=== PATIENT | male | born 2000 | race African-American/Black ===

== ENCOUNTER 2025-08-19 15:28 | Outpatient (AMB) | payer OTHER, SELFPAY ==
--- NOTE | 2025-08-19 15:33 | A.OFFPC_ITS ---
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 Intake Note: [facility] Care Riprap Placer Required: No Accompanied by: Self / Same As Patient Allergies No Known Allergies (No Known Allergies*) Allergy (Unverified 08/19/25 15:36) Medication List - Last Reconciled 08/19/25 by Live Goodwin MD No Known Home Meds Tobacco use date assessed: 08/19/25 Dental Screening Dental Screen Date: 08/19/25 Did you have a dental visit in the last 12 months?: Yes Did you have a dental problem in the last 6 months where you did not have access to dental care?: No Was dental information given to patient?: Patient has dentist HPI HPI Comments History of Present Illness Details History of Present Illness The patient is a 25 year old individual presenting to establish care and obtain medical documentation for school. 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 The patient previously visited an urgent care and received a PPD skin test for tuberculosis which was negative, but the school did not accept the provided paperwork. The patient also began receiving vaccinations at [facility] but did not complete the series, pending this PCP appointment. History of Attention-Deficit/Hyperactivity Disorder: The patient was diagnosed with ADD or ODD as a child while experiencing emotional difficulties and was placed on unspecified medications, which were later discontinued. The patient was hospitalized in a psychiatric facility when younger. Encounter for general adult medical examination without abnormal findings: The patient has not seen a primary care physician since high school and has a limited knowledge of the patient's own medical history due to being in foster care during adolescence. The last comprehensive blood work was likely done during high school. Surgical History: - History of being placed under anesthes ia for dental procedures for cavities as a child. Medications: - The patient is not currently taking an y medications. - The patient reports a history of takin g unspecified medication for ADD/ODD as a child but has since stopped. Social History: - Substance Use: Smokes marijuana since high school with variable frequency. - Alcohol Use: Drinks occasionally. - Past History: The patient was in [facility] care as a youth. 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 - Living Situation: Currently lives at a n aunt's house and is trying to secure a new residence with a sister that would also accommodate their grandmother. - Sexual History: Sexually active with o ne partner, uses protection, and reports a negative STI screening within the last six months. Family History: - The patient is aware of the patient's parents but reports no known family medical history. Diagnostic Results: - Tuberculosis Skin Test: Reports a prio r test at an urgent care facility which was interpreted as negative, but the paperwork was not accepted by the patient's school. Past Medical History - The patient has not had a primary care physician since high school. - History of being in foster care. - History of psychiatric hospitalization as a youth. - Past diagnosis of ADD or ODD as a chil d. - History of multiple dental cavities re quiring sedation for procedures as a child. Health Maintenance - Establishing care with a new primary c are provider. - Immunizations: Titers for measles, mum ps, rubella, and varicella were ordered to assess immunity status for school requirements. - Tuberculosis Screening: A blood test f or tuberculosis was ordered. - Comprehensive Lab Screening: Baseline labs ordered include a CBC, CMP, lipid panel, HgbA1c, hepatitis B/C, HIV, RPR, TSH, magnesium, vitamin B12, folate, vitamin D, and a urinalysis. - STI Screening: The patient reports jeromy ng tested within the last six months and declined repeat testing at this visit. 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 1. Little interest or pleasure in doing things: not at all 2. Feeling down, depressed, or hopeless: several days 3. Trouble falling or staying asleep, or sleeping too much: not at all 4. Feeling tired or having little energy: not at all 5. Poor appetite or overeating: several days 6. Feeling bad about yourself - or that you are a failure or have let yourself or your family down: not at all 7. Trouble concentrating on things, such as reading the newspaper or watching television: not at all 8. Moving or speaking so slowly that other people could have noticed. Or the opposite - being so fidgety or restless that you have been moving around a lot more than usual: not at all 9. Thoughts that you would be better off or of hurting yourself in some way: not at all Total score: 2 Depression Screening Interpretation: Negative Depression Screening Done: Yes 31914 - PHQ-9 Billing: Yes Source: Developed by Drs. Korey Garcia, Shanita Gamble, Eric Jean Baptiste and colleagues, with an educational justin from [employer]. Thrive Questionnaire Date Thrive assessed: 08/19/25 I am a: Patient What is your living situation today?: I have a steady place to live Within the past 12 months, did the food you bought not last and you didn't have the money to get more?: Sometimes True Within the past 12 months, did you worry whether your food would run out before you got money to buy more?: Sometimes True Do you have trouble paying for medicines?: No Do you have trouble getting transportation to medical appointments?: No Do you have trouble paying your heating and electricity bill?: No Do you have trouble taking care of your child, family member or friend?: No Are you currently unemployed and looking for a job?: No Are you interested in more education?: Yes Please select the resources that you would like help with: None Currently or been in a relationship where the following occur: I choose not to answer THRIVE Score: 2 AUDIT C Alcohol Use Questionnaire (AUDIT-C) 1. How often do you have a drink containing alcohol?: 2-4 times a month 2. How many drinks containing alcohol do you have on a typical day when you are drinking?: 3 or 4 3. How often do you have six or more drinks on one occasion?: Less than monthly Total Score: 4 EUGENIO-7 AMB Questionnaire EUGENIO-7 Date EUGENIO - 7 assessed: 08/19/25 Feeling nervous, anxious, or on edge: 0 = Not at all Not being able to stop or control worryin = Not at all Worrying too much about different things: 1 = Several days Trouble relaxin = Not at all Being so restless that it is hard to sit still: 0 = Not at all Becoming easily annoyed or irritable: 1 = Several days Feeling afraid as if something awful might happen: 0 = Not at all Total EUGENIO-7 score (0-4 normal; 5-9 mild; 10-14 moderate; 15-21 severe): 2 Source: Developed by Drs. Korey Garcia, Shanita Gamble, Eric Jean Baptiste and colleagues, with an educational justin from [employer]. EUGENIO-7 Assessment Billing EUGENIO-7 Assessment Tool: EUGENIO-7 Assessment 06967 Review of Systems Narrative Review of Systems - Constitutional: Reports variable sleep. - HEENT: Reports transient pain in the ear during otoscopic examination. - Gastrointestinal: Reports normal bowel and bladder function. - All other systems reviewed and are negative. 10-point ROS reviewed and negative except as noted in HPI Physical exam (Primary Care) Vital Signs: Last Vital Signs Temp 98.1 F 08/19/25 15:39 Pulse 75 08/19/25 15:39 Resp 18 08/19/25 15:39 BP 126/79 08/19/25 15:39 Pulse Ox 98 08/19/25 15:39 Oxygen Delivery Method Room Air 08/19/25 15:39 BMI result Body Mass Index 25.7 Tobacco/Smoking Status: Tobacco use Status Tobacco use date assessed 08/19/25 08/19/25 15:41 Patient Tobacco Use Status Never used Tobacco 08/19/25 16:48 e-Cigarette/Vaping Use Never Used 08/19/25 15:41 PHQ-9: PHQ-9 Score PHQ-9: Total score 2 08/19/25 15:46 Depression Screening Interpretation: Negative Thrive Assessment: Date of Thrive Assessment Date Thrive assessed 08/19/25 08/19/25 15:35 Currently or been in a relationship where the following occur: I choose not to answer Narrative Physical Exam General: Well-appearing, in no acute distress. Vital signs: Within normal limits. HEENT: Normocephalic, atraumatic. PERRLA, EOMI. Conjunctiva clear, sclera anicteric. Oropharynx clear, mucous membranes moist. TMs intact bilaterally. Ears look good. Neck: Supple, no lymphadenopathy, no thyromegaly, no JVD or carotid bruits. Cardiovascular: RRR, normal S1/S2, no murmurs, rubs, or gallops. Peripheral pulses 2+ and symmetric. No edema. Respiratory: Lungs clear to auscultation bilaterally, no wheezes, rales, or rhonchi. Normal effort. Abdomen: Soft, non-tender, non-distended. Normoactive bowel sounds. No hepatosplenomegaly, no masses. MSK: Full range of motion, no joint swelling or deformity. Normal gait. Skin: Warm, dry, intact. No rashes, lesions, or pallor. Neuro: Alert and oriented x3. Cranial nerves II-XII intact. Strength 5/5 throughout. Sensation intact. Reflexes 2+ symmetric. Normal coordination and gait. Psych: Appropriate mood and affect. Normal judgment and insight. History of ADD/ODD diagnosis in childhood, no current psychiatric medication use. Coding Level of Care Code New Pt Level 4 (31877) Diagnoses History of ADHD Z86.59 Encounter for administrative examinations Z02.9 Additional Codes EUGENIO-7 Assessment Billing - EUGENIO-7 Assessment Tool: EUGENIO-7 Assessment 91138 ([id number]) PHQ-9 - 05118 - PHQ-9 Billing: Yes ([id number]) Assessment & Plan Assessment & Plan (1) History of ADHD: Code(s): Z86.59 - Personal history of other mental and behavioral disorders Category: Medical (2) Encounter for administrative examinations: Code(s): Z02.9 - Encounter for administrative examinations, unspecified Plan Consent The plan for a comprehensive blood draw was discussed with the patient, including tests for a complete blood count, comprehensive metabolic panel, A1c, lipids, hepatitis B and C, HIV, magnesium, syphilis, thyroid function, urinalysis, vitamin B12, folate, vitamin D, and titers for measles, mumps, rubella, and varicella, as well as a blood test for tuberculosis. The patient was informed that the blood would be drawn today and agreed to the plan. Patient was informed and verbally consented to the use of an ambient scribe for clinic note documentation during this visit. Plan 1. Encounter For Administrative Purposes And Health Maintenance - A comprehensive lab panel will be drawn today to establish a baseline, including a CBC, CMP, A1c, lipid panel, hepatitis B, hepatitis C, HIV, magnesium, syphilis, TSH, urinalysis, vitamin B12, folate, and vitamin D. - Titers for measles, mumps, rubella, and varicella will be ordered to satisfy school requirements. - A blood test for tuberculosis will be ordered. - The patient will follow up in two weeks to review all results and determine if any further action, such as vaccinations, is needed. Discussion Notes I have discussed with the patient the plan for this visit, which is to establish care and fulfill the patient's medical requirements for school. I explained that we would perform a comprehensive blood workup to get a baseline of the patient's health, given the long interval since the last physician visit. This will include titers for measles, mumps, rubella, and varicella, and a blood test for tuberculosis. I informed the patient that the blood draw could be done today at the adjacent lab. We will schedule a follow-up visit in two weeks to review all lab results and discuss any further steps. The patient verbalized understanding and agreed with the plan. Patient Instructions - Please go to the lab next door today to have your blood drawn. - Schedule a follow-up appointment in two weeks to discuss your results. - Do not get any more vaccines until we review the results of your immunity tests (titers). Medical Decision Making The patient is a 25-year-old individual presenting to establish primary care and fulfill medical requirements for a medical officer program. The patient has not had consistent medical care since high school and has a fragmented medical record due to a history of being in foster care. The approach for this visit was to perform a complete physical exam, gather a comprehensive history, and order baseline laboratory studies to assess overall health status. To meet school requirements, blood titers for MMR and varicella were ordered as the most efficient method to confirm immunity, potentially avoiding unnecessary vaccinations. A blood-based tuberculosis test was also ordered, as the documentation from a prior negative skin test was deemed insufficient by the patient's school. The comprehensive lab panel will provide a necessary baseline given the long lapse in care. A follow-up in two weeks is planned to review all findings and create a long-term health maintenance plan. Total Time Statement 30 min Total time spent caring for the patient today includes pre-visit chart review, documentation, review of laboratory and diagnostic imaging results, medication reconciliation, medically necessary evaluation, counseling on diagnoses, care coordination, ordering appropriate tests and medications, review of tests performed by other providers, reporting test results to the patient, and communication with other healthcare providers. Orders: Orders HIV Ab/Ag Today Z13.9 - Encounter for screening, unspecified UA CC w/rflx Micro + Cult Today Z13.9 - Encounter for screening, unspecified Lipid Panel Today Z13.9 - Encounter for screening, unspecified Vitamin B12 and Folate Today Z13.9 - Encounter for screening, unspecified Hemoglobin A1c Today Z13.9 - Encounter for screening, unspecified Magnesium Today Z13.9 - Encounter for screening, unspecified Vitamin D 1,25 dihydroxy Today Z13.9 - Encounter for screening, unspecified MMR IgG Measles Mumps Rubella Today Z13.9 - Encounter for screening, unspecified Quantiferon TB Gold Plus 1 Today Z13.9 - Encounter for screening, unspecified Complete Blood Count Auto Diff Today Z13.9 - Encounter for screening, unspecified Hepatitis B Surface Antigen Today Z13.9 - Encounter for screening, unspecified Syphilis Screen Today Z13.9 - Encounter for screening, unspecified Comprehensive Met. Panel Today Z13.9 - Encounter for screening, unspecified Hepatitis C Antibody Today Z13.9 - Encounter for screening, unspecified TSH reflex Free T4 Today Z13.9 - Encounter for screening, unspecified Hepatitis B Surface Antibody Today Z13.9 - Encounter for screening, unspecified Varicella IgG Antibody Today Z13.9 - Encounter for screening, unspecified
[2025-08-19 15:39] VITALS: BP 126/79; PULSE 75; RESP 18; TEMP 36.7; O2SAT 98; BMI 25.7
--- OUTSIDE RECORDS SUMMARY | 2025-08-19 18:27 | XMS_ITS | Clinical Summary ---
Author Organization [facility] Address [address] [place] [address] Phone Care Team Providers Care Maintenance Trainer Name Role Phone Physician, No Pcp Primary Care Provider Unavaila ble Allergies No known active allergies Medications No known medications Social History Tobacco Use Types Packs/Day Years Used Date Smoking Tobacco: Never Smokeless Tobacco: Never Tobacco Cessation:Counseling Given: Not Answered Alcohol Use Standard Drinks/Week Comments Not Currently 0 (1 standard drink = 0.6 oz pur e alcohol) Sex and Gender Information Value Date Recorded Sex Assigned at Not on file Legal Sex Male 1:49 PM EST Gender Identity Not on file Sexual Orientation Not on file Obstetrics History Last Filed Vital Signs Vital Sign Reading Time Taken Comments Blood Pressure 134/78 07/24/2024 9:57 AM EST Pulse 76 07/24/2024 9:57 AM EST Temperature 36.6 C (97.9 F) 07/24/2024 5:56 AM EST Respiratory Rate 16 07/24/2024 9:57 AM EST Oxygen Saturation 98% 07/24/2024 9:57 AM EST Inhaled Oxygen Concentration - - Weight - - Height - - Body Mass Index - - Plan of Treatment Health Maintenance Due Date Last Done Comments DTaP,Tdap,and Td Vaccines (6 - Tdap) 2009 06/21/2002, 12/31/1999, 1998, Additional history exists HIV Screening 08/17/2022 Hepatitis C Screening 08/17/2022 Social Influencers of Health Screening 08/17/2022 Depression Screening 09/19/2024 COVID-19 Vaccine ( season) 2025 Influenza Vaccine (#1) 2025 2, 06/21/2002, 09/14/2001 HPV Vaccines (1 - 3-dose SCDM series) 2025 RSV Immunization Adult Patients (1 - 1-dose 75+ series) 2073 Hepatitis B Vaccines Completed 03/30/1999, 1998, 1998 HIB Vaccines Completed 06/21/2002, 11/17, 1998, Additional history exists IPV Vaccines Completed 06/21/2002, 12/18, 1998, Additional history exists MMR Vaccines Completed 06/21/2002, 06/11/1999 Varicella Vaccines Completed 10/05/2007, 12/31/1999 Hepatitis A Vaccines Aged Out No long er eligible based on patient's age to complete this topic Meningococcal ACWY Vaccine Aged Out N o longer eligible based on patient's age to complete this topic Meningococcal B Vaccine Aged Out No l onger eligible based on patient's age to complete this topic Pneumococcal Vaccine: Pediatrics (0 to 5 Years) and At-Risk Patients (6 to 49 Years) Aged Out No longer eligible based on patient's age to complete this topic RSV Immunization Patients Under 20 months Aged Out No longer eligible based on patient's age to complete this topic Insurance MEDICAID - [place] Care Teams Maintenance Trainer Relationship Specialty Start Date End Date Physician, No Pcp PCP - General 07/24/24
== END 2025-08-19 15:58 | disposition home or self-care (01) ==
LOC: HO.HMCFMS 15:29
PROVIDERS: PCP Internal Medicine; Visit Provider Student in an Organized Health Care Education/Training Program
DX: Z86.59 Personal history of other mental and behavioral disorders (principal); Z02.9 Encounter for administrative examinations, unspecified

== ENCOUNTER 2025-08-19 15:28 | Outpatient (REF) | payer OTHER, SELFPAY ==
[2025-08-19 18:24] LABS: MANUAL DIFF FLAG NO
[2025-08-19 19:05] LABS: Hematocrit 40.3 % (42.0-52.0); Hemoglobin 14.4 g/dl (14.0-18.0); Imm Gran Abs Auto 0.02 X10*3/uL (0.00-0.03); Imm Gran Pct Auto 0.3 % (0.0-0.4); Lymphocytes Absolute Auto 1.9 X10*3/uL (1.2-4.9); Mean Corpuscular HGB Conc 35.7 g/dl (31.0-36.0); Mean Corpuscular Hemoglobin 31.1 pg (27.0-33.0); Mean Corpuscular Volume 87.0 fL (80.0-98.0); NRBC Abs Auto 0.000 X10*3/uL (0.0-0.012); NRBC Pct Auto 0.0 /100WBC (0.0-0.2); Platelet Count 151 X10*3/uL (160-400); Red Blood Count 4.63 X10*6/uL (4.60-5.80); White Blood Count 7.8 X10*3/uL (4.8-10.8)
[2025-08-19 19:51] LABS: Appearance Urine Clear; Glucose Urine UA Negative (Negative); PH 6.0 (5.0-9.0); Specific Gravity - Urine 1.015 (1.005-1.025)
[2025-08-19 20:00] LABS: Alanine Aminotransferase 29 U/L (0-40); Albumin Level 4.6 g/dL (3.5-5.0); Alkaline Phosphatase 97 U/L (39-117); Anion Gap 11 (12-20); Aspartate Amino Transferase 50 U/L (5-37); Blood Urea Nitrogen 11 mg/dL (9-16); Calcium 9.2 mg/dL (8.4-10.2); Carbon Dioxide 27 mmol/L (22-29); Chloride 106 mmol/L (96-108); Cholesterol 172 mg/dL (<200); Estimated Glomerular Filt Rate > 60; HDL Cholesterol 63 mg/dL (>40); Magnesium 1.9 mg/dL (1.6-2.6); Potassium 3.6 mmol/L (3.3-5.1); Sodium 140 mmol/L (135-145); Total Protein 7.2 g/dL (6.5-8.0); Triglycerides 58 mg/dL (<150)
[2025-08-19 20:19] LABS: Folate 12.4 ng/mL (> or = 4.0); Vitamin B12 547 pg/mL (200-900)
[2025-08-20 07:52] LABS: Syphilis Screen Nonreactive (Nonreactive)
[2025-08-20 09:13] LABS: HBS Num1 > 1000.00 mIU/mL (0-7.99); HBsAGNum1 0.44 S/CO (0.00-0.99); HIV Num 1 0.08 S/CO (0.00-0.99); Hepatitis B Surface Antigen Negative (Negative); ~HepC Num1 0.07 S/CO (0.00-0.79); ~Hepatitis B Surface Antibody REACTIVE (Nonreactive); ~Hepatitis C Antibody Nonreactive (Nonreactive)
[2025-08-21 16:13] LABS: Rubeola IgG (Measles) 190.00 AU/mL
[2025-08-22 06:58] LABS: Quantiferon TB Gold Plus 1 NEGATIVE (NEGATIVE); TB Test (QFT) Mitogen -Nil 8.28 IU/mL; TB Test (QFT) Nil 0.02 IU/mL; TB Test (QFT) Plus TB1 -Nil 0.00 IU/mL; TB Test (QFT) Plus TB2 -Nil 0.00 IU/mL
[2025-08-25 14:13] LABS: VITAMIN D (1,25 OH) D3 68 pg/mL; Vit D (1,25-Dihydroxy) Total 68 pg/mL (18-72); Vitamin D (1,25 OH) D2 <8 pg/mL
== END 2025-08-19 15:29 | disposition home or self-care (01) ==
LOC: HO.HKASLDS 15:28
PROVIDERS: PCP Student in an Organized Health Care Education/Training Program; Visit Provider Student in an Organized Health Care Education/Training Program
DX: Z02.0 Encounter for examination for admission to educational institution (principal)
CPT/HCPCS: 36415; 80053; 80061; 81003; 82607; 82652; 82746; 83036; 83735; 84443; 85025; 86480; 86706; 86735; 86762; 86765; 86780; 86787; 86803; 87340; 87389

== ENCOUNTER 2025-09-03 15:35 | Outpatient (AMB) | payer OTHER, SELFPAY ==
--- NOTE | 2025-09-03 15:36 | MHC.PC.OV ---
Vital Signs 09/03/25 15:41 Height 5 ft 8 in Weight 165 lb 8 oz BMI 25.2 BP 146/92 H Blood Pressure Location Rt brachial Position Sitting Respiration 18 Pulse 76 Pulse Source Pulse Oximeter Temp 97.7 F Temp Source Oral Pulse Oximetry (%) 99 Oxygen Delivery Method Room Air Intake Visit Reasons: 2 wk - lab review Intake Note: patient present for lab review. Business Center Representative Required: No Accompanied by: Self / Same As Patient Allergies No Known Allergies (No Known Allergies*) Allergy (Unverified 09/03/25 15:40) Medication List - Last Reconciled 09/03/25 by Live Goodwin MD No Known Home Meds Tobacco use date assessed: 08/19/25 Dental Screening Dental Screen Date: 08/19/25 HPI HPI Comments History of Present Illness Details History of Present Illness The patient is a 25 year old male presenting for a review of his lab results. Elevated Aspartate Aminotransferase (AST): The patient's lab results show an elevated aspartate aminotransferase (AST) level of 50, with the upper limit of normal being 37. Alcohol use: The patient reports a history of drinking alcohol every day last year. He states he no longer drinks daily but now tries to limit his alcohol consumption to the weekends, with an occasional drink during the week. 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 - Substance Use: The patient reports alcohol consumption. - He previously drank daily but now attempts to limit it to weekends. Diagnostic Results: - CBC: White blood cells and red blood cells are normal. - CMP: Sodium, potassium, and kidney function are normal. - Liver Function Tests: AST is elevated at 50 (normal <37), while other liver markers are normal. - Lipid Panel: Cholesterol levels were noted to be good. - Other Labs: Vitamin B12, folate, vitamin D, and thyroid function are normal. - Urinalysis: Normal. - Infectious Disease Screening: Syphilis, hepatitis B, and hepatitis C are negative. - Titers: Obtained for mumps, rubella, and measles. - TB Test: Completed. Past Medical History Health Maintenance - Lab results reviewed, which included CBC, CMP, liver function tests, lipids, vitamin levels, thyroid, urinalysis, and infectious disease screening. - Immunization titers for mumps, rubella, and measles were checked. - TB testing was performed. - Counseled on reducing alcohol intake due to elevated AST levels. 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 Current occupational exposures/hazards: No Cognitive needs: No Hearing needs: No Vision needs: No Questionnaire Thrive Questionnaire Date Thrive assessed: 08/19/25 I am a: Patient What is your living situation today?: I have a steady place to live Within the past 12 months, did the food you bought not last and you didn't have the money to get more?: Sometimes True Within the past 12 months, did you worry whether your food would run out before you got money to buy more?: Sometimes True Do you have trouble paying for medicines?: No Do you have trouble getting transportation to medical appointments?: No Do you have trouble paying your heating and electricity bill?: No Do you have trouble taking care of your child, family member or friend?: No Are you currently unemployed and looking for a job?: No Are you interested in more education?: Yes Please select the resources that you would like help with: None Currently or been in a relationship where the following occur: I choose not to answer THRIVE Score: 2 EUGENIO-7 AMB Questionnaire EUGENIO-7 Date EUGENIO - 7 assessed: 08/19/25 Source: Developed by Drs. Korey Garcia, Shanita Gamble, Eric Jean Baptiste and colleagues, with an educational justin from [employer]. Review of Systems Narrative Review of Systems 10-point ROS reviewed and negative except as noted in HPI Physical exam (Primary Care) Vital Signs: Last Vital Signs Temp 97.7 F 09/03/25 15:41 Pulse 76 09/03/25 15:41 Resp 18 09/03/25 15:41 BP 146/92 H 09/03/25 15:41 Pulse Ox 99 09/03/25 15:41 Oxygen Delivery Method Room Air 09/03/25 15:41 BMI result Body Mass Index 25.2 Tobacco/Smoking Status: Tobacco use Status Tobacco use date assessed 08/19/25 09/03/25 15:42 Patient Tobacco Use Status Never used Tobacco 09/03/25 15:42 e-Cigarette/Vaping Use Never Used 09/03/25 15:42 Thrive Assessment: Date of Thrive Assessment Date Thrive assessed 08/19/25 09/03/25 15:42 Currently or been in a relationship where the following occur: I choose not to answer Narrative Physical Exam General: Well-appearing, in no acute distress. Vital signs: Within normal limits. HEENT: Normocephalic, atraumatic. PERRLA, EOMI. Conjunctiva clear, sclera anicteric. Oropharynx clear, mucous membranes moist. TMs intact bilaterally. Neck: Supple, no lymphadenopathy, no thyromegaly, no JVD or carotid bruits. Cardiovascular: RRR, normal S1/S2, no murmurs, rubs, or gallops. Peripheral pulses 2+ and symmetric. No edema. Respiratory: Lungs clear to auscultation bilaterally, no wheezes, rales, or rhonchi. Normal effort. Abdomen: Soft, non-tender, non-distended. Normoactive bowel sounds. No hepatosplenomegaly, no masses. MSK: Full range of motion, no joint swelling or deformity. Normal gait. Skin: Warm, dry, intact. No rashes, lesions, or pallor. Neuro: Alert and oriented x3. Cranial nerves II-XII intact. Strength 5/5 throughout. Sensation intact. Reflexes 2+ symmetric. Normal coordination and gait. Psych: Appropriate mood and affect. Normal judgment and insight. Coding Level of Care Code Est Pt Level 3 (74244) Add On Problem Visit Only Diagnoses Elevated AST (SGOT) R74.01 Alcohol use F10.90 Assessment & Plan Assessment & Plan (1) Elevated AST (SGOT): Code(s): R74.01 - Elevation of levels of liver transaminase levels Category: Medical (2) Alcohol use: Code(s): F10.90 - Alcohol use, unspecified, uncomplicated Category: Medical Plan Consent Patient was informed and verbally consented to the use of an ambient scribe for clinic note documentation during this visit. Plan 1. Elevated Aspartate Aminotransferase (Ast) - The elevated AST level of 50 is likely due to alcohol consumption, as other liver markers are normal. - It was recommended that the patient reduce his alcohol intake. 2. Alcohol Use - Recommended reducing alcohol consumption. 3. Preventative Care - Lab results were reviewed with the patient. - Printouts of the lab results will be provided to the patient for submission to his emergency medicine medical director program. Discussion Notes I reviewed the patient's lab results with him. I noted that his CBC, electrolytes, kidney function, other liver markers, cholesterol, vitamin levels, thyroid function, and urinalysis were all normal. Screenings for syphilis, hepatitis B, and hepatitis C were negative. I explained that his AST is slightly elevated at 50, which is indicative of alcohol consumption. I recommended he reduce his alcohol intake. I agreed to provide him with printouts of his lab results, which he needs for his application to a emergency medicine medical director program. Patient Instructions - Your lab results were mostly normal, including your blood counts, kidney and liver function (except for one test), cholesterol, and vitamin levels. - One of your liver tests (AST) was slightly high, which is a sign of drinking alcohol. - It is recommended that you cut down on your alcohol consumption to allow your liver to rest. - We will provide you with a copy of your lab results to submit for your school application. Medical Decision Making The patient is a 25-year-old male here for a follow-up visit to review his lab results. His labs are largely unremarkable except for a mildly elevated AST of 50. Given that his other liver function markers are within normal limits and his self-reported history of alcohol use, the elevated AST is most consistent with alcohol-related hepatic effects. The patient was counseled on reducing his alcohol intake to prevent further liver strain. No further immediate workup is needed, but monitoring and lifestyle modification are rock. Total Time Statement 20 min Total time spent caring for the patient today includes pre-visit chart review, documentation, review of laboratory and diagnostic imaging results, medication reconciliation, medically necessary evaluation, counseling on diagnoses, care coordination, ordering appropriate tests and medications, review of tests performed by other providers, reporting test results to the patient, and communication with other healthcare providers.
[2025-09-03 15:41] VITALS: BP 146/92; PULSE 76; RESP 18; TEMP 36.5; O2SAT 99; BMI 25.2
--- OUTSIDE RECORDS SUMMARY | 2025-09-03 19:46 | XMS_ITS | Clinical Summary ---
Author Organization [facility] Address [address] [place] [address] Phone Care Team Providers Care Sand Temperer Name Role Phone Physician, No Pcp Primary [...] on file Sexual Orientation Not on file Last Filed Vital Signs Vital Sign Reading [...] topic Insurance MEDICAID - [place] Care Teams Sand Temperer Relationship Specialty Start Date End Date Physician, No Pcp PCP - General 07/24/24
== END 2025-09-03 15:51 | disposition home or self-care (01) ==
LOC: HO.HMCFMS 15:36
PROVIDERS: PCP Internal Medicine; Visit Provider Student in an Organized Health Care Education/Training Program
DX: R74.01 Elevation of levels of liver transaminase levels (principal); F10.90 Alcohol use, unspecified, uncomplicated

== ENCOUNTER → 2025-09-03 15:35 | Outpatient (BNVA) | payer OTHER, SELFPAY | PROVIDERS: PCP Internal Medicine; Visit Provider Student in an Organized Health Care Education/Training Program | DX: R74.01 Elevation of levels of liver transaminase levels (principal); F10.90 Alcohol use, unspecified, uncomplicated | CPT/HCPCS: 99212 ==